=== PATIENT | male | born 1985 | race African-American/Black ===

== ENCOUNTER 2017-11-22 21:40 | Emergency (ER) | payer OTHER ==
[~2017-11-22] VITALS: Ht 172.7 cm; Wt 93.2 kg
[2017-11-23 00:01] VITALS: BP 138/86
== END 2017-11-23 00:01 | disposition home or self-care (01) ==
LOC: EME 21:40
PROC: 0CQ0XZZ Repair Upper Lip, External Approach (ICD-10-PCS; principal; 2017-11-22)
DX: S01.511A Laceration without foreign body of lip, initial encounter (principal); Y04.2XXA Assault by strike against or bumped into by another person, initial encounter; Y93.67 Activity, basketball; Y92.147 Courtyard of prison as the place of occurrence of the external cause
CPT/HCPCS: 99281; 99284